=== PATIENT | female | born 1990 | race Asian ===

== ENCOUNTER 2018-06-18 21:46 | Emergency (ER) | payer OTHER ==
--- NOTE | 2018-06-18 22:32 | ED ---
Head Injury - HPI Summary HPI Summary: 27 female presents with syncopal episode today. She states she did not eat dinner and she had a scuba diving class today. She states that she only had minimal amount of water. She states she feels dehydrated. She states that she took a hot shower and then woke up on the floor. She states she does not know how long she was out for but she says maybe an hour. She denies any history of syncope. Denies any family history of syncope. She states he felt dizzy prior to passing out. She admits to some nausea and dizziness now. No vomiting. She has a large contusion on the left side of her forehead. She is not on blood thinners. Has no medical conditions. She denies any change in vision. No neck pain. She has contusion to her left hip. No other injury. - History Of Current Complaint Chief Complaint: EDHeadInjury Stated Complaint: SYNCOPE/HEAD INJURY Time Seen by Provider: 06/18/18 22:19 Pain Intensity: 4 - Allergies/Home Medications Allergies/Adverse Reactions: Allergies Allergy/AdvReac Type Severity Reaction Status Date / Time No Known Allergies Allergy Verified 06/18/18 21:56 Home Medications: Home Medications NK [No Home Medications Reported] 06/18/18 [History Confirmed 06/18/18] PMH/Surg Hx/FS Hx/Imm Hx Endocrine/Hematology History: Denies: Hx Anticoagulant Therapy Respiratory History: Denies: Hx Asthma Infectious Disease History: No Infectious Disease History: Denies: Traveled Outside the [place] in Last 30 Days - Family History Known Family History: Positive: Other - no fam hx of syncope - Social History Alcohol Use: None Substance Use Type: Reports: None Smoking Status (MU): Never Smoked Tobacco Review of Systems Negative: Fever Negative: Chest Pain Negative: Shortness Of Breath Positive: Nausea Positive: Headache, Syncope All Other Systems Reviewed And Are Negative: Yes Physical Exam Triage Information Reviewed: Yes Vital Signs On Initial Exam: Initial Vitals Temp Pulse Resp BP Pulse Ox 100.4 F 75 16 100/67 100 06/18/18 21:53 06/18/18 21:53 06/18/18 21:53 06/18/18 21:53 06/18/18 21:53 Vital Signs Reviewed: Yes Appearance: Positive: Well-Appearing Head/Face: Positive: Normal Head/Face Inspection, Other - large contusion to left side of head Eyes: Positive: Normal, EOMI, HANNAH, Conjunctiva Clear ENT: Positive: Normal ENT inspection, Pharynx normal, TMs normal Neck: Positive: Other: - nontender neck Respiratory/Lung Sounds: Positive: Clear to Auscultation, Breath Sounds Present Cardiovascular: Positive: Normal, RRR Abdomen Description: Positive: Nontender, Soft Bowel Sounds: Positive: Present Musculoskeletal: Positive: Normal Neurological: Positive: Sensory/Motor Intact, Alert, Oriented to Person Place, Time, CN Intact II-III Psychiatric: Positive: Normal - Franco Coma Scale Best Eye Response: 4 - Spontaneous Best Motor Response: 6 - Obeys Commands Best Verbal Response: 5 - Oriented Coma Scale Total: 15 Diagnostics - Vital Signs Vital Signs Temp Pulse Resp BP Pulse Ox 06/18/18 21:53 100.4 F 75 16 100/67 100 - Laboratory Lab Statement: Any lab studies that have been ordered have been reviewed, and results considered in the medical decision making process. - Radiology head Xray Interpretation: No Acute Changes - IMPRESSION: Scalp hematoma overlying the left frontal calvarium. No underlying fracture. No intracranial hemorrhage. No intracranial mass or obstructive hydrocephalus. Radiology Interpretation Completed By: Radiologist - EKG No standard instances Cardiac Rate: NL EKG Rhythm: Sinus Rhythm ST Segment: Normal EKG Interpretation: normal sinus rhythm, short pr interval Re-Evaluation - Re-Evaluation First Eval Re-Evaluation Time: 23:31 Change: Improved Comment: feeling better after fluids, dizziness resolved, discussed results with patient Head Injury Course/Dx Course Of Treatment: 27 female presents with syncopal episode today. She states she did not eat dinner and she had a scuba diving class today. She states that she only had minimal amount of water. She states she feels dehydrated. She states that she took a hot shower and then woke up on the floor. She states she does not know how long she was out for but she says maybe an hour. She denies any history of syncope. Denies any family history of syncope. She states he felt dizzy prior to passing out. She admits to some nausea and dizziness now. No vomiting. She has a large contusion on the left side of her forehead. She is not on blood thinners. Has no medical conditions. She denies any change in vision. No neck pain. She has contusion to her left hip. No other injury. on exam has large contusion to left side of head. normal neuro exam. lungs CTA. discussed with passing out for that long and with large head contusion will get CT. CT shows no fx just scalp hematoma. patient has orthostatic vitals. patient refused lab work but agreed to IV fluids due to orthostatic vital. gave fluids and feeling better. ekg sinus rhythmn. blood glucose 85. explained likely passed out do to orthostatic hypotension and vasovagal with hot water. told to eat more frequently and to drink water. told concussion precuations. patient understand and agrees with plan. - Diagnoses Differential Diagnosis/HQI/PQRI: Concussion Without LOC, Contusion, Intracranial Bleed Provider Diagnoses: Syncope, Head injury, Orthostatic hypotension, Facial contusion Discharge - Sign-Out/Discharge Documenting (check all that apply): Patient Departure - Discharge Plan Condition: Good Disposition: HOME Patient Education Materials: Syncope (ED), Head Injury (ED) Referrals: No Primary Care Phys,NOPCP [Primary Care Provider] - Additional Instructions: Drink plenty of fluids Eat small snacks as tolerated place ice on the area modify activities as tolerated take Tylenol or ibuprofen as needed for pain every 6 hours Follow up with Arturo within 5 days Return to ED if develop any new or worsening symptoms - Billing Disposition and Condition Condition: GOOD Disposition: Home
[2018-06-18] MEDS ORDERED: NS 0.9% 1000 ML* 1,000 ML IV ONE (22:49)
--- NOTE | 2018-06-18 23:07 | RAD ---
EXAM: CT Head Without Intravenous Contrast CLINICAL HISTORY: 27 years old, female; Injury or trauma; Fall; Additional info: Syncope, head contusion TECHNIQUE: Axial computed tomography images of the head/brain without intravenous contrast. All CT scans at this facility use at least one of these dose optimization techniques: automated exposure control; mA and/or kV adjustment per patient size (includes targeted exams where dose is matched to clinical indication); or iterative reconstruction. COMPARISON: No relevant prior studies available. FINDINGS: Brain: No acute intracranial hemorrhage. No intracranial mass or mass effect. The michaels matter and white matter are normal. Ventricles: No obstructive hydrocephalus. Bones/joints: Unremarkable. No acute fracture. Soft tissues: Scalp hematoma overlying the left frontal calvarium. No underlying fracture. Sinuses: Unremarkable as visualized. No acute sinusitis. Mastoid air cells: Unremarkable as visualized. No mastoid effusion. IMPRESSION: Scalp hematoma overlying the left frontal calvarium. No underlying fracture. No intracranial hemorrhage. No intracranial mass or obstructive hydrocephalus.
[2018-06-19] VITALS: BP 94/65
== END 2018-06-18 23:59 | disposition home or self-care (01) ==
LOC: ED 21:46
DX: S09.90XA Unspecified injury of head, initial encounter (principal); S00.93XA Contusion of unspecified part of head, initial encounter; R11.0 Nausea; R51 Headache; R55 Syncope and collapse; X58.XXXA Exposure to other specified factors, initial encounter; Y92.9 Unspecified place or not applicable; I95.1 Orthostatic hypotension
CPT/HCPCS: 70450; 93005; 99283